=== PATIENT | female | born 1990 | race African-American/Black ===

== ENCOUNTER 2025-04-01 10:43 | Outpatient (AMB) | payer MEDICARE, MEDICAID, SELFPAY ==
--- NOTE | 2025-04-01 10:47 | A.OFFVIS_ITS ---
Intake Visit Reasons: 6 mo fu/Sz Allergies risperidone (Risperidone) Allergy (Intermediate, Unverified 04/01/25 10:48) INCREASE IN SEIZURES , unknown bupropion (Bupropion) Allergy (Unknown, Unverified 04/01/25 10:48) INCREASE IN SEIZURES Pork/Porcine Containing Products (Pork/Porcine Product Derivatives) Allergy (Unknown, Unverified 04/01/25 10:48) UNKNOWN sertraline (Sertraline) Allergy (Unknown, Unverified 04/01/25 10:48) INCREASE IN SEIZURES , unknown BuPROPion HCl Allergy (Unknown, Uncoded 04/01/25 10:48) unknown Cephalosporins Allergy (Unknown, Uncoded 04/01/25 10:48) unknown pork Allergy (Unknown, Uncoded 04/01/25 10:48) vomiting Medication List - Last Reconciled 04/01/25 by Tasia Davison CNP amitriptyline 150 mg PO BEDTIME 90 days cholecalciferol (vitamin D3) 50 mcg PO DAILY cyanocobalamin (vitamin B-12) 100 mcg PO 2XW fluticasone propionate 50 mcg/actuation 1 spray intranasal BID gabapentin 300 mg PO TID hydroxyzine HCl 50 mg PO TID PRN lamotrigine 200 mg PO BID lamotrigine 25 mg PO DAILY levetiracetam 1,000 mg PO BID loratadine 10 mg PO BEDTIME lorazepam 1 mg PO BID PRN melatonin 10 mg PO BEDTIME metformin ER 500 mg PO DAILY metoprolol tartrate 100 mg PO DAILY multivitamin with folic acid 400 mcg (Daily-Joshua (with folic acid)) 1 tab PO DAILY olanzapine 20 mg PO BEDTIME spironolactone 25 mg PO DAILY topiramate 100 mg PO BEDTIME trazodone 150 mg PO BEDTIME triamcinolone acetonide 0.1% topical BID PRN HPI Comments Details: She was doing okay, but was having some amnesia. She thought she did things already that she did not do, like take out the trash or cook, and felt very sure that it had been done. She felt bad when she realized it was not done like she thought. No definite seizures. No missed doses of medication. She has VNA who helps manage medications. Headaches still happened at times, but not as often. Sleep was okay. She reported dealing with some PTSD recently related to childhood trauma and was working with therapist. Last seizure 10/14/18 when she fell down stairs and lost consciousness. No incontinence. No tongue bite. She has a history of seizure disorder since age 14. She describes them as generalized tonic-clonic seizures. She says that the last seizure before this was in 2016. She has been on Keppra 1 g twice a day. History of headache daily that she was taking 2 Tylenol twice a day for. She has had panic attacks, high blood pressure, and diabetes, and in the past said she may have leukemia. The patient is a poor historian and has some cognitive challenges. No medical records are available. [facility] Medical History (Updated 04/01/25 @ 10:51 by Tasia Davison CNP) Anxiety Review of Systems Const Denies chills, Denies daytime sleepiness, Denies difficulty sleeping, Denies fatigue, Denies fever(s), Denies frequent falls, Reports headache(s), Denies increased appetite, Denies poor appetite, Denies snoring, Denies weakness, Denies weight gain and Denies weight loss Eyes Denies loss of vision ENT Denies vertigo, Denies dizziness, Reports headache(s) and Denies neck pain Card Denies chest pain at rest, Denies chest pain with activity, Denies syncope, Denies leg edema, Denies palpitations, Denies dyspnea and Denies dyspnea on exertion Resp Denies cough, Denies dyspnea, Denies dyspnea on exertion and Denies snoring GI Denies abdominal pain, Denies constipation, Denies heartburn, Denies diarrhea and Denies nausea Denies urinary frequency, Denies urinary incontinence and Denies urinary urgency Musc Denies abnormal gait, Denies back pain, Denies myalgias, Denies arthralgias, Denies neck pain, Denies numbness and Denies tingling Neuro Denies abnormal gait, Denies vertigo, Denies dizziness, Denies syncope, Denies frequent falls, Reports headache(s), Denies lack of coordination, Denies loss of vision, Denies memory loss, Denies numbness, Denies Other visual disturbances, Denies restless legs, Denies seizure-like activity, Denies tingling, Denies paresthesias, Denies tremor(s) and Denies weakness Psych Denies anxiety, Denies depression, Denies auditory hallucinations, Denies memory loss and Denies visual hallucinations Endo Denies fatigue and Denies palpitations Physical Exam Const Other: General Appearance:? normal, in no acute distress. Heart:? S1, S2 normal, no murmurs. Lungs:? clear anteriorly and posteriorly. Musculoskeletal:? normal. Extremities:? no edema. Psych:? alert, oriented, cognitive function intact, cooperative with exam. Neuro Other: Abnormal Neurological Findings:?none.? Mental Status: alert and oriented X 3. Normal attention, orientation, memory, and affect. Cranial Nerves: Pupils are equal, round, and reactive to light. External ocular muscles are intact. Visual west are full, no ptosis. Face is symmetrical, no facial weakness or droop. Facial sensations are normal. Tongue protrudes in midline. Palate elevates symmetrically. Shoulder shrugging is normal Motor Examination: Normal muscle tone, bulk and strength. No atrophy or fasciculations. No drift of the extended upper extremities. DTR 2+. Plantars are flexor. Sensory Exam: Normal light touch, temperature, pinprick, vibration, and joint- position sensations. Rhomberg sign is absent. Coordination: No ataxia. No titubation. Gait Exam: Within normal limits. Cerebellar Signs: Haoyib-ac-hmqk and poyq-ih-bwjd is normal. No dysdiadochokinesia. Extrapyramidal System: No tremor, rigidity with normal facial expressions. No bradykinesia. No bradyphrenia. Normal arm swing and posture. No propulsion or retropulsion. Speech: Normal. Results Reviewed Results Reviewed: EEG 10/2018: WNL CT [facility] at [place] 08/2019: Unremarkable Assessment & Plan Assessment & Plan (1) Seizure disorder: Code(s): G40.909 - Epilepsy, unspecified, not intractable, without status epilepticus Category: Medical Plan: Continue levetiracetam 1000mg 1 tablet twice a day. Continue lamotrigine 200mg 1 tablet twice a day. Continue lamotrigine 25mg 1 tablet daily. Continue topiramate 100mg 1 tablet at bedtime. EEG ordered. (2) Tension headache: Code(s): G44.209 - Tension-type headache, unspecified, not intractable Category: Medical Plan: Continue amitriptyline 150mg 1 tablet at bedtime. Orders: Orders EEG Routine Today G40.909 - Epilepsy, unspecified, not intractable, without status epilepticus Medications: New lamotrigine 200 mg PO BID 180 tabs 1RF 90 days levetiracetam 1,000 mg PO BID 180 tabs 1RF 90 days lamotrigine 25 mg PO DAILY 90 tabs 1RF 90 days topiramate 100 mg PO BEDTIME 90 tabs 1RF 90 days Coding Level of Care Code Est Pt Level 4 (28756) Diagnoses Seizure disorder G40.909 Tension headache G44.209
== END 2025-04-01 12:02 | disposition home or self-care (01) ==
LOC: HO.HSM 10:43
PROVIDERS: PCP Internal Medicine; Referring Provider Internal Medicine; Visit Provider Registered Nurse
DX: G40.909 Epilepsy, unspecified, not intractable, without status epilepticus (principal); G44.209 Tension-type headache, unspecified, not intractable
CPT/HCPCS: 99214

== ENCOUNTER → 2025-04-01 10:43 | Outpatient (BNVA) | payer MEDICARE, MEDICAID, SELFPAY | PROVIDERS: PCP Internal Medicine; Referring Provider Internal Medicine; Visit Provider Registered Nurse | DX: G40.909 Epilepsy, unspecified, not intractable, without status epilepticus (principal); G44.209 Tension-type headache, unspecified, not intractable | CPT/HCPCS: 99212 ==

== ENCOUNTER 2025-05-13 10:20 | Outpatient (REF) | payer MEDICARE, MEDICAID, SELFPAY ==
--- NOTE | 2025-05-13 11:59 | EEG_ITS ---
History: pt c/o episodes of amnesia she thinks that she already completed task but she has not i.e. cooking, taking out trash- these occur daily - no LOC or incontinence noted with spells- H/O seizures last one in 10/14/18, anxiety, headaches, PTSD, HTN, and diabetes Medication: amitriptline, vit D3, vit B12, fluticasone propioate,gabapentin, hydroxyzine, lamotrigine, levetiracetam, lortadine, melatonin, metformin, metoprolol tartate, olanzapine, spironalactone Technical Description Photic Stimulation: Completed Hyperventilation: performed- fair effort Behavioral State: pleasant, cooperative - able to hold conversation State of Consciousness: awake Skull Defect: no Sedation: no Handedness: Right Duration:32 min 23 secs Last Meal:05/13/2025 4:00:00 AM Time / date of last symptom:05/13/2025 Description: This is a 16 channel EEG with an EKG lead. Patient is reported awake during the tracing. Background EEG rhythm is low amplitude slightly asymmetric with slow alpha frequency noted in left hemispheric leads and faster and lower amplitude in right hemispheric leads. No definite sharp waves or spikes were noted. Photic stimulation does not produce any significant abnormality. Hyperventilation is unremarkable. Cardiac lead does not reveal any significant abnormality. Impression: Mildly abnormal EEG suggestive of left hemispheric dysfunction but no epileptic discharges were noted. Imaging correlation is recommended for any structural abnormality on the left side. MTDD
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
== END 2025-05-13 10:21 | disposition home or self-care (01) ==
LOC: HO.NEURO 10:20
PROVIDERS: PCP Internal Medicine; Visit Provider Registered Nurse
DX: G40.909 Epilepsy, unspecified, not intractable, without status epilepticus (principal)
CPT/HCPCS: 95816

== ENCOUNTER → 2025-05-13 11:59 | Outpatient (BNV) | payer MEDICARE, MEDICAID, SELFPAY | PROVIDERS: PCP Internal Medicine; Visit Provider Psychiatry & Neurology Neurology | DX: G40.909 Epilepsy, unspecified, not intractable, without status epilepticus (principal); R94.01 Abnormal electroencephalogram [EEG] | CPT/HCPCS: 95816 ==